=== PATIENT | male | born 1985 | race Two or more races ===

== ENCOUNTER 2020-04-01 08:28 | Emergency (ER) | payer OTHER ==
[~2020-04-01] VITALS: Ht 167.6 cm; Wt 63.5 kg
--- NOTE | 2020-04-01 08:31 | NUR ---
PT AMBER ACCOMPANIED BY [facility]. PT IN CUSTODY. WAS FOUND IPASSED OUT IN HIS CAR AT [place]. STATES HE WANTS TO GET MEDICATION FOR HIS FOOT PAIN. PT ADMITS TO "SHOOTING" UNKNOWN DRUGS. PT IS PLACED ON MONITOR. PT IS C/O "SOB" BUT SATTING 100% RA. DR HUSSEIN AT BEDSIDE FOR EVAL.
--- NOTE | 2020-04-01 08:50 | NUR ---
MEDICALLY CLEARED. PT D/C TO PD IN STABLE CONDITION.
[2020-04-01 09:16] VITALS: BP 131/91
== END 2020-04-01 09:17 ==
LOC: ER 08:30
DX: S90.811A Abrasion, right foot, initial encounter (principal); L03.115 Cellulitis of right lower limb; L92.8 Other granulomatous disorders of the skin and subcutaneous tissue; R00.0 Tachycardia, unspecified; Z02.89 Encounter for other administrative examinations; X58.XXXA Exposure to other specified factors, initial encounter; Y93.51 Activity, roller skating (inline) and skateboarding; Y92.89 Other specified places as the place of occurrence of the external cause; Y99.8 Other external cause status